=== PATIENT | female | born 1930 | race Caucasian/White ===

== ENCOUNTER 2018-02-08 12:31 | Inpatient (IN) | payer MEDICARE, OTHER ==
[~2018-02-08] VITALS: Ht 162.6 cm; Wt 72.7 kg
--- NOTE | ~2018-02-08 | EC ---
PATIENT:ELEAZAR CALLOWAY DATE OF SERVICE: 02/08/18 SEX: F MEDICAL RECORD: [id number] DATE OF : [birth year] LOCATION:D.M2 D.212 AGE OF PATIENT: 87 ADMISSION DATE: 02/08/18 REFERRING PHYSICIAN: INTERPRETING PHYSICIAN: KAIT BORREGO MD ECHOCARDIOGRAM REPORT ECHO CHARGES 4 ECHO COMPLETE Date: 02/08 CLINICAL DIAGNOSIS: ATRIAL FLUTTER ECHOCARDIOGRAPHIC MEASUREMENTS (adult normal given) AC root (d.<3.7cm) 2.3 cm LV Septum d (<1.2 cm> 1.5 cm Valve Excursion 1.6 cm LV Septum (systole) 1.6 cm Left Atria (s.<4.0cm> 3.9 cm LVPW d(<1.2cm) 0.9 cm RV (d.<2.3cm) 2.0 cm LVPW (sytole) 1.4 cm LV diastole(<5.6CM) 3.7 cm MV E-F(>70mm/sec) cm LV systole 2.7 cm LVOT Diameter 1.6 cm MV exc.(>10mm) cm Est.ejection fraction (50-75%) % DOPPLER: LVIT cm/sec A 56 cm/sec E 117 cm/sec LA cm/sec RVSP 19.8 mmHg LVOT 140 cm/sec AOP1/2T m/s Asc. Ao 167 cm/sec RVOT 62 cm/sec RA cm/sec PA cm/sec AV Gradient Peak 11.2 mmHg AV Mean 7.3 mmHg AV Area 1.7 cm MV Gradient Peak 5.4 mmHg MV Mean 1.4 mmHg MV Area cm COMMENTS: Electronic Organ Technician: Yayo MORGANDEE MURRAY Envelope Adjuster: 3 Dr. Reina TAPE# PACS Pericardial Effusion N DATE OF SERVICE: Adequate 2D echo, color flow, spectral Doppler and M-mode. Borderline LVH. LV internal dimension normal. Wall motion normal. EF is greater than or equal to 55%. Aortic valve tricuspid. No evidence of stenosis by Doppler interrogation. Left atrium is normal. Mitral valve show no prolapse. Trace MR. Right-sided chambers normal. Trace TR. TRANSINT:[id number] Voice Confirmation ID: [id number] DOCUMENT ID: [id number] ECHOCARDIOGRAM REPORT [id number] ELEAZAR CALLOWAY KAIT BORREGO MD at 1116 CC: [id number] DICTATION DATE: 02/08/18 1543 TRESTLEMAN: 02/08/18 1554 ADM IN [place] [id number] [place] [id number]
--- NOTE | ~2018-02-08 | PN ---
PATIENT:ELEAZAR CALLOWAY MEDICAL RECORD: [id number] LOCATION:D. D.212 ADMISSION DATE: 02/08/18 PROGRESS NOTE DATE OF SERVICE: 02/14/2018 SUBJECTIVE: An 87-year-old female who has had a history of chronic atrial flutter and has had increasing shortness of breath recently. Also has been having nasal drainage with thick secretions, which has sometimes been greenish in color. Per the daughter at the bedside the patient was doing better this morning. She has been coughing, had some chest tightness. No fever or chills at this time. PHYSICAL EXAMINATION: GENERAL: Physical exam reveals a sedentary female who is in no acute distress. Intermittent cough. VITAL SIGNS: Temperature 98.1, heart rate 104, respiratory rate 20, blood pressure 104/52, saturation 92%. HEENT: Unremarkable. There is mild nasal redness. There is no obstruction. NECK: Supple. Trachea is midline. There is no adenopathy. LUNGS: Chest exam shows mild wheezes with coughing. There is mild chest wall tenderness. There is no accessory muscle use. HEART: Exam shows no jugular venous distention, no murmur or gallops. ABDOMEN: Benign. EXTREMITIES: No clubbing, cyanosis or edema. LABORATORY DATA: White count 3.8, hemoglobin 8.4. Platelet count is 136,000. Chemistries remarkable for sodium of 131, potassium 3.6. Magnesium is 1.9. AST 107, ALT is 114, alkaline phosphatase is 248. Chest x-ray showed patchy airspace opacities seen in lung bases. ASSESSMENT: 1. Chronic atrial flutter with rapid ventricular response, improved with rate control. 2. Acute asthmatic bronchitis, probably secondary to postnasal drip with mucous plugging, the patient will need the mucolytics, bronchodilators. Also, continuous antibiotics. 3. Rhinitis. We will add saline nasal spray. PLAN: 1. Saline nasal spray. 2. Mucinex. 3. DVT prophylaxis. TRANSINT:[id number] Voice Confirmation ID: [id number] DOCUMENT ID: [id number] PROGRESS NOTE [id number] ELEAZAR CALLOWAY SOLITARIO AHUMADA at 1307 CC: [id number] DICTATION DATE: 02/14/182226 CHIEF ENGINEER RESEARCH: 02/15/18 0415 DIS IN 02/15/18 [facility] [address] [address]
--- NOTE | ~2018-02-08 | PN ---
PATIENT:ELEAZAR CALLOWAY MEDICAL RECORD: [id number] [facility] DATE: 02/08/18 PROGRESS NOTE DATE OF SERVICE: 02/15/2018 SUBJECTIVE: This is an 87-year-old female who was admitted for change in mental status as well as atrial flutter. The patient was also coughing non-productively. There is some shortness of breath. She was treated with antibiotics as well as bronchodilators and Mucinex. The patient's coughing is decreased this hospital relating that her breathing is improved. Family decided to transfer the patient to another hospital for a second opinion. PHYSICAL EXAMINATION: GENERAL: Reveals an elderly female resting comfortably in chair. VITAL SIGNS: Temperature 99.5, heart rate of 111, respiratory rate of 17, blood pressure 118/55, saturation 90%. SHEENT: Unremarkable. NECK: Supple. CHEST: Shows a mild crackle. Some coughing. NECK: Shows no jugular venous distention. No murmur or gallops. ABDOMEN: Benign, without any tenderness. EXTREMITIES: Shows no clubbing, cyanosis or edema. LABORATORY DATA: White count 3.5, hemoglobin 10, platelet count is 123,000. Chemistry is remarkable for potassium of 3.1, sodium of 128. BUN is 18, creatinine is 0.9. Arterial blood gas: pH 7.45, pCO2 of 32, pO2 of 64 on room air. ASSESSMENT: 1. Altered mental status probably secondary to bronchitis or hyponatremia, metabolic. 2. Atrial flutter, chronic. 3. Weakness. PLAN: 1. Continue bronchodilators. 2. The patient has signed consent for transfer. TRANSINT:[id number] Voice Confirmation ID: [id number] DOCUMENT ID: [id number] SOLITARIO AHUMADA at 1307 CC: [id number] DICTATION DATE: 02/15/182231 SOFTWARE DEVELOPER MID LEVEL: 02/16/18 0850 DIS IN 02/15/[address] [place] [id number]
--- NOTE | ~2018-02-08 | CN ---
PATIENT NAME:ELEAZAR CALLOWAY MEDICAL RECORD: [id number] : [birth year] LOCATION:D. D.2126 ADMIT DATE: 02/08/18 ACCOUNT: [id number] CONSULTING PHYSICIAN: KAIT BORREGO MD REFERRING PHYSICIAN: SANJEEV SANTOS DO DATE OF CONSULTATION: 02/08/2018 HISTORY: An 87-year-old female with history of dementia, presented initially to Dr. Santos's office with increasing dyspnea on exertion, fatigue, and tiredness; found to be in atrial fibrillation with RVR. Symptom exact onset is unknown. Historically, she has felt poorly since she had a cat scratch approximately a week ago. She sought care at urgent care clinic. No palpitations or flutters. PAST MEDICAL HISTORY: Dementia. ALLERGIES: None. MEDICATIONS: None chronically. SOCIAL HISTORY: Lives by herself. Nonsmoker and nondrinker. Excellent family support. REVIEW OF SYSTEMS: The patient reports easy bruising but reports no swollen glands. The patient reports no fever, no night sweats, no significant weight gain, no significant weight loss. No significant exercise tolerance. The patient reports no dry eyes, no irritation, no vision change. Patient reports no difficulty hearing and no ear pain. Patient reports no frequent nose bleeds or nose and sinus problems. Patient reports on arm pain on exertion. No shortness of breath while lying down. No history of heart murmur. Patient reports no cough, no wheezing or coughing up blood. Patient reports no abdominal pain, no vomiting. Normal appetite. No diarrhea and not vomiting blood. No nausea and no constipation. Patient reports no incontinence. No difficulty urinating. No hematuria. No increased frequency. Patient reports no muscle aches. No weakness, no arthralgias, no back pain. No swelling of the extremities. Patient reports no abnormal mole, no jaundice, no rashes. Reports no loss of consciousness. No weakness and no numbness. No seizures, dizziness, or headaches. The patient reports no depression, no sleep disturbance, feeling safe in a relationship and no alcohol abuse. Patient reports on fatigue. Reports no runny nose or sinus pressure. No itching, no hives, and no frequent sneezing. PHYSICAL EXAMINATION: GENERAL: Pleasant female, in no acute distress. VITAL SIGNS: Pulse 106 and blood pressure 97/64. HEENT: Normocephalic and atraumatic. NECK: No bruits noted. HEART: Irregular, mildly tachy. II/ systolic ejection murmur. LUNGS: Actually fairly good excursion. ABDOMEN: Soft and nontender. EXTREMITIES: Pulses are well preserved, 2+. There is no edema. IMPRESSION: AFib with RVR. At this point in time, we will start oral anticoagulants with Xarelto 20 mg p.o. daily. Risks and benefits were discussed with the patient and daughter. Additionally, Cardizem for rate control. Blood pressure somewhat low. Hopefully, she will tolerate this; if not, can consider CONSULT REPORT [id number] ELEAZAR CALLOWAY something such as digoxin. Further recommendations based on above. TRANSINT:[id number] Voice Confirmation ID: [id number] DOCUMENT ID: [id number] KAIT BORREGO MD at 1116 CC: [id number] DICTATION DATE: 02/08/18 1449 BUNCH TRIMMER MOLD: 02/08/18 1527 ADM IN [place] [id number] [place] [address]
[2018-02-08 14:03] VITALS: BP 97/53; BMI 26.1
[2018-02-08 14:11] LABS: BASOPHILS 0.8 % (0-2); EOSINOPHILS 0 % (0-7); HEMATOCRIT 32.9 % (36.0-48.0); HEMOGLOBIN 11.1 g/dL (12-16); IMMATURE GRANULOCYTES 0.6 % (0-5); LYMPHOCYTES 17.6 % (15-50); MCH 30.7 pg (26.0-34.0); MCHC 33.7 g/dL (31.0-37.0); MCV 90.9 fL (80.0-100.0); MEAN PLATELET VOLUME 11.1 fL (7.4-10.4); MONOCYTES 7.8 % (2-11); NEUTROPHILS 73.2 % (40-80); PLATELET COUNT 153 10x3/uL (130-400); RBC 3.62 10x6/uL (4.00-5.40); RDW 13.4 % (11.5-14.5); WBC 3.6 10x3/uL (4.8-10.8)
[2018-02-08 14:34] LABS: ALBUMIN 2.9 g/dL (3.4-5.0); ALKALINE PHOSPHATASE 155 U/L (46-116); ALT (SGPT) 83 U/L (10-68); BILIRUBIN - TOTAL 0.67 mg/dL (0.2-1.3); CALC OSMOLALITY 262 mosm/kg (275-300); CALCIUM 8.1 mg/dL (8.5-10.1); CARBON DIOXIDE 27.8 mmol/L (21.0-32.0); CHLORIDE - SERUM 98 mmol/L (98-107); CREATININE - SERUM 0.9 mg/dL (0.6-1.3); GLUCOSE 92 mg/dL (74-106); POTASSIUM - SERUM 4.1 mmol/L (3.5-5.1); PROTEIN - SERUM 6.4 g/dL (6.4-8.2); SODIUM 130 mmol/L (136-145); UREA NITROGEN 18 mg/dL (7-18); eGFR NON AFRICAN AMERICAN 63 mL/min (90-120)
[2018-02-08 14:43] LABS: CKMB 1.2 U/L (0.0-3.6); CREATINE KINASE 83 UL (21-215); MAGNESIUM - SERUM 2.2 mg/dL (1.8-2.4); THYROID STIMULATING HORMONE 1.58 uIU/mL (0.36-3.74)
[2018-02-08 14:44] LABS: TROPONIN-I < 0.017 ng/mL (0.000-0.060)
[2018-02-08 19:40] LABS: CKMB 0.9 U/L (0.0-3.6); CREATINE KINASE 77 UL (21-215); TROPONIN-I < 0.017 ng/mL (0.000-0.060)
[2018-02-08 20:00] VITALS: BP 86/41
[2018-02-09 02:07] LABS: CKMB 0.6 U/L (0.0-3.6); CREATINE KINASE 65 UL (21-215); TROPONIN-I < 0.017 ng/mL (0.000-0.060)
[2018-02-09 04:00] VITALS: BP 111/72
[2018-02-09 05:01] LABS: HEMATOCRIT 30.1 % (36.0-48.0); HEMOGLOBIN 10.1 g/dL (12-16); MCH 30.4 pg (26.0-34.0); MCHC 33.6 g/dL (31.0-37.0); MCV 90.7 fL (80.0-100.0); MEAN PLATELET VOLUME 11.1 fL (7.4-10.4); PLATELET COUNT 132 10x3/uL (130-400); RBC 3.32 10x6/uL (4.00-5.40); RDW 13.7 % (11.5-14.5); WBC 2.8 10x3/uL (4.8-10.8)
[2018-02-09 05:11] LABS: ALBUMIN 2.5 g/dL (3.4-5.0); BILIRUBIN - TOTAL 0.9 mg/dL (0.2-1.3); CALCIUM 7.8 mg/dL (8.5-10.1); CARBON DIOXIDE 26.8 mmol/L (21.0-32.0); CREATININE - SERUM 1.1 mg/dL (0.6-1.3); POTASSIUM - SERUM 3.8 mmol/L (3.5-5.1); PROTEIN - SERUM 6.2 g/dL (6.4-8.2)
[2018-02-09 05:35] LABS: APPEARANCE CLEAR (CLEAR); BILIRUBIN NEGATIVE (NEGATIVE); COLOR DK YELLOW (YELLOW); GLUCOSE NEGATIVE (NEGATIVE); KETONE NEGATIVE (NEGATIVE); NITRITE NEGATIVE (NEGATIVE); PROTEIN TRACE mg/dL (NEGATIVE); SPECIFIC GRAVITY 1.015 (1.005-1.020); UROBILINOGEN NORMAL (NORMAL)
[2018-02-09 05:36] LABS: BACTERIA FEW /hpf (NONE SEEN); EPITHELIAL CELLS 0-5 /hpf (0-5); HYALINE CAST 0-5 /lpf (NONE SEEN); RED CELLS - URINE 0-5 /hpf (0-5); WHITE CELLS - URINE 0-5 /hpf (0-5)
[2018-02-09 07:25] LABS: LYMPHOCYTES 17 % (15-50); MONOCYTES 8 % (2-11); NEUTROPHILS 61 % (40-80); PLATELET ESTIMATE NORMAL; ROULEAUX OCC
[2018-02-09 07:57] VITALS: BP 82/43
[2018-02-09 15:06] VITALS: Ht 162.6 cm; Wt 72.7 kg
[2018-02-09 20:06] VITALS: BP 98/56
[2018-02-10] VITALS: BP 110/58
[2018-02-10 04:19] LABS: BASOPHILS 0.8 % (0-2); EOSINOPHILS 0 % (0-7); HEMATOCRIT 28.9 % (36.0-48.0); HEMOGLOBIN 9.7 g/dL (12-16); IMMATURE GRANULOCYTES 0.3 % (0-5); LYMPHOCYTES 12.9 % (15-50); MCH 29.8 pg (26.0-34.0); MCHC 33.6 g/dL (31.0-37.0); MEAN PLATELET VOLUME 10.7 fL (7.4-10.4); MONOCYTES 6.1 % (2-11); NEUTROPHILS 79.9 % (40-80); PLATELET COUNT 129 10x3/uL (130-400); RBC 3.26 10x6/uL (4.00-5.40); RDW 13.5 % (11.5-14.5)
[2018-02-10 04:26] LABS: MCV 88.7 fL (80.0-100.0); WBC 3.9 10x3/uL (4.8-10.8)
[2018-02-10 04:36] LABS: ALBUMIN 2.3 g/dL (3.4-5.0); ANION GAP 11.5 mmol/L (8-16); BILIRUBIN - TOTAL 1.59 mg/dL (0.2-1.3); CALCIUM 7.7 mg/dL (8.5-10.1); CARBON DIOXIDE 22.2 mmol/L (21.0-32.0); CREATININE - SERUM 0.9 mg/dL (0.6-1.3); POTASSIUM - SERUM 3.7 mmol/L (3.5-5.1); PROTEIN - SERUM 6.1 g/dL (6.4-8.2)
[2018-02-10 07:43] VITALS: BP 91/58
[2018-02-10 11:40] VITALS: BP 96/62
[2018-02-10 15:53] VITALS: BP 90/54
[2018-02-10 20:33] VITALS: BP 83/49
[2018-02-11] VITALS: BP 103/52
[2018-02-11 04:21] LABS: BASOPHILS 0.7 % (0-2); EOSINOPHILS 0 % (0-7); HEMATOCRIT 29.8 % (36.0-48.0); HEMOGLOBIN 10.1 g/dL (12-16); IMMATURE GRANULOCYTES 0.2 % (0-5); LYMPHOCYTES 10.1 % (15-50); MCH 30.1 pg (26.0-34.0); MCHC 33.9 g/dL (31.0-37.0); MEAN PLATELET VOLUME 11.4 fL (7.4-10.4); MONOCYTES 8.7 % (2-11); NEUTROPHILS 80.3 % (40-80); PLATELET COUNT 117 10x3/uL (130-400); RBC 3.35 10x6/uL (4.00-5.40); RDW 13.9 % (11.5-14.5); WBC 4.2 10x3/uL (4.8-10.8)
[2018-02-11 04:52] LABS: ALBUMIN 2.3 g/dL (3.4-5.0); ANION GAP 14.2 mmol/L (8-16); BILIRUBIN - TOTAL 2.02 mg/dL (0.2-1.3); CARBON DIOXIDE 20.9 mmol/L (21.0-32.0); CREATININE - SERUM 1.1 mg/dL (0.6-1.3); POTASSIUM - SERUM 4.1 mmol/L (3.5-5.1); PROTEIN - SERUM 6.1 g/dL (6.4-8.2)
[2018-02-11 05:36] VITALS: BP 90/47
[2018-02-11 07:50] VITALS: BP 101/44
[2018-02-11 11:12] VITALS: BP 98/45
[2018-02-11 16:09] VITALS: BP 102/49
[2018-02-11 20:02] VITALS: BP 74/34
[2018-02-12 00:24] VITALS: BP 93/51
[2018-02-12 05:36] LABS: BASOPHILS 0.5 % (0-2); EOSINOPHILS 0.3 % (0-7); HEMATOCRIT 28.3 % (36.0-48.0); HEMOGLOBIN 9.7 g/dL (12-16); IMMATURE GRANULOCYTES 0.5 % (0-5); LYMPHOCYTES 12.6 % (15-50); MCHC 34.3 g/dL (31.0-37.0); MCV 87.6 fL (80.0-100.0); MEAN PLATELET VOLUME 11.1 fL (7.4-10.4); MONOCYTES 4.7 % (2-11); NEUTROPHILS 81.4 % (40-80); PLATELET COUNT 113 10x3/uL (130-400); RBC 3.23 10x6/uL (4.00-5.40); WBC 3.8 10x3/uL (4.8-10.8)
[2018-02-12 06:13] VITALS: BP 139/114
[2018-02-12 06:16] LABS: ALBUMIN 2.1 g/dL (3.4-5.0); ANION GAP 10.6 mmol/L (8-16); BILIRUBIN - TOTAL 2.29 mg/dL (0.2-1.3); CALCIUM 8.4 mg/dL (8.5-10.1); CARBON DIOXIDE 24.4 mmol/L (21.0-32.0); CREATININE - SERUM 1.1 mg/dL (0.6-1.3)
[2018-02-12 07:24] LABS: HEP B CORE AB TOTAL Negative (Negative); HEPATITIS C ANTIBODY <0.1 (0.0-0.9)
[2018-02-12 08:09] VITALS: BP 85/47
[2018-02-12 12:05] VITALS: BP 86/49
[2018-02-12 15:01] VITALS: BP 98/57
[2018-02-12 20:30] VITALS: BP 104/54
[2018-02-13 04:30] VITALS: BP 16/56
[2018-02-13 05:51] LABS: BASOPHILS 0.8 % (0-2); EOSINOPHILS 0.3 % (0-7); HEMOGLOBIN 9.7 g/dL (12-16); IMMATURE GRANULOCYTES 0.8 % (0-5); LYMPHOCYTES 9.2 % (15-50); MCH 29.3 pg (26.0-34.0); MCHC 33.4 g/dL (31.0-37.0); MCV 87.6 fL (80.0-100.0); MEAN PLATELET VOLUME 11.8 fL (7.4-10.4); MONOCYTES 4.7 % (2-11); NEUTROPHILS 84.2 % (40-80); RBC 3.31 10x6/uL (4.00-5.40); RDW 14.1 % (11.5-14.5); WBC 3.8 10x3/uL (4.8-10.8)
[2018-02-13 05:54] LABS: PLATELET COUNT 147 10x3/uL (130-400)
[2018-02-13 06:16] LABS: ALBUMIN 1.9 g/dL (3.4-5.0); ANION GAP 10.2 mmol/L (8-16); BILIRUBIN - TOTAL 2.02 mg/dL (0.2-1.3); CALCIUM 7.8 mg/dL (8.5-10.1); CARBON DIOXIDE 25.8 mmol/L (21.0-32.0); PROTEIN - SERUM 5.5 g/dL (6.4-8.2)
[2018-02-13 06:18] LABS: CREATININE - SERUM 0.8 mg/dL (0.6-1.3)
[2018-02-13 07:55] VITALS: BP 98/48
[2018-02-13 11:33] VITALS: BP 105/63
[2018-02-13 15:30] VITALS: BP 106/72
[2018-02-13 21:54] VITALS: BP 106/81
[2018-02-14 02:13] VITALS: BP 118/76
[2018-02-14 05:26] VITALS: BP 109/55
[2018-02-14 05:38] LABS: BASOPHILS 0.5 % (0-2); EOSINOPHILS 0.5 % (0-7); HEMATOCRIT 27.6 % (36.0-48.0); HEMOGLOBIN 9.4 g/dL (12-16); IMMATURE GRANULOCYTES 0.8 % (0-5); LYMPHOCYTES 7.4 % (15-50); MCH 29.6 pg (26.0-34.0); MCHC 34.1 g/dL (31.0-37.0); MCV 86.8 fL (80.0-100.0); MEAN PLATELET VOLUME 11.7 fL (7.4-10.4); MONOCYTES 5.8 % (2-11); PLATELET COUNT 136 10x3/uL (130-400); RBC 3.18 10x6/uL (4.00-5.40); WBC 3.8 10x3/uL (4.8-10.8)
[2018-02-14 06:10] LABS: ALBUMIN 1.8 g/dL (3.4-5.0); ALKALINE PHOSPHATASE 248 U/L (46-116); ALT (SGPT) 114 U/L (10-68); BILIRUBIN - TOTAL 1.92 mg/dL (0.2-1.3); CALC OSMOLALITY 264 mosm/kg (275-300); CARBON DIOXIDE 25.1 mmol/L (21.0-32.0); CHLORIDE - SERUM 100 mmol/L (98-107); CREATININE - SERUM 0.7 mg/dL (0.6-1.3); GLUCOSE 95 mg/dL (74-106); MAGNESIUM - SERUM 1.9 mg/dL (1.8-2.4); PHOSPHOROUS 2.7 mg/dL (2.5-4.9); POTASSIUM - SERUM 3.6 mmol/L (3.5-5.1); PRO BNP 8605 pg/mL (0-450); PROTEIN - SERUM 5.5 g/dL (6.4-8.2); SODIUM 131 mmol/L (136-145); UREA NITROGEN 17 mg/dL (7-18); eGFR NON AFRICAN AMERICAN 84 mL/min (90-120)
[2018-02-14 10:00] VITALS: BP 115/71
[2018-02-14 15:25] LABS: EHRLICHIA CHAFF IGG Negative (Neg:<1:64); EHRLICHIA CHAFF IGM Negative (Neg:<1:20); HGE IGG TITER Negative (Neg:<1:64); HGE IGM TITER Negative (Neg:<1:20)
[2018-02-14 20:05] VITALS: BP 104/52
[2018-02-15 03:11] LABS: RMSF IGM 0.23 index (0.00-0.89)
[2018-02-15 05:17] VITALS: BP 141/63
[2018-02-15 13:18] LABS: ANA REFLEX - ANTICHROMATIN ABS 0.4 AI (0.0-0.9); ANA REFLEX - CENTROMERE B ABS <0.2 AI (0.0-0.9); ANA REFLEX - DBL STRANDED DNA 49 IU/mL (0-9); ANA REFLEX - DIRECT Positive (Negative); ANA REFLEX - JO-1 AB <0.2 AI (0.0-0.9); ANA REFLEX - RNP ANTIBODIES <0.2 AI (0.0-0.9); ANA REFLEX - SCL-70 <0.2 AI (0.0-0.9); ANA REFLEX - SJOGRENS AB SSA 0.2 AI (0.0-0.9); ANA REFLEX - SJOGRENS AB SSB <0.2 AI (0.0-0.9); ANA REFLEX - SMITH AB <0.2 AI (0.0-0.9)
[2018-02-15 16:24] LABS: BASOPHILS 0.3 % (0-2); EOSINOPHILS 0.9 % (0-7); HEMATOCRIT 29.7 % (36.0-48.0); IMMATURE GRANULOCYTES 0.9 % (0-5); LYMPHOCYTES 7.8 % (15-50); MCH 29.5 pg (26.0-34.0); MCHC 33.7 g/dL (31.0-37.0); MCV 87.6 fL (80.0-100.0); MEAN PLATELET VOLUME 11.6 fL (7.4-10.4); MONOCYTES 7.2 % (2-11); NEUTROPHILS 82.9 % (40-80); PLATELET COUNT 123 10x3/uL (130-400); RBC 3.39 10x6/uL (4.00-5.40); RDW 14.5 % (11.5-14.5); WBC 3.5 10x3/uL (4.8-10.8)
[2018-02-15 17:15] LABS: ALBUMIN 1.9 g/dL (3.4-5.0); BILIRUBIN - TOTAL 1.71 mg/dL (0.2-1.3); CALCIUM 7.8 mg/dL (8.5-10.1); CARBON DIOXIDE 28.1 mmol/L (21.0-32.0); POTASSIUM - SERUM 3.1 mmol/L (3.5-5.1); PROTEIN - SERUM 5.5 g/dL (6.4-8.2)
[2018-02-15 17:16] LABS: CREATININE - SERUM 0.9 mg/dL (0.6-1.3)
[2018-02-15 18:50] VITALS: BP 106/56
[2018-02-15 20:31] VITALS: BP 113/55
[2018-02-16 22:14] LABS: MYCOPLASMA PNEUMO IGG 587 U/mL (0-99)
[2018-02-17 11:23] LABS: F. TULARENSIS - IGG Negative (()); F. TULARENSIS - IGM Negative (())
== END 2018-02-15 23:17 | disposition short-term general hospital (02) | DRG 193 ==
LOC: D.OPS 12:31 → D.M2 12:32
PROVIDERS: Family Medicine; Internal Medicine Pulmonary Disease; Student in an Organized Health Care Education/Training Program
DX: J18.9 Pneumonia, unspecified organism (principal); I50.31 Acute diastolic (congestive) heart failure; E87.1 Hypo-osmolality and hyponatremia; F05 Delirium due to known physiological condition; I48.92 Unspecified atrial flutter; I48.91 Unspecified atrial fibrillation; R53.1 Weakness; R50.9 Fever, unspecified; F03.90 Unspecified dementia, unspecified severity, without behavioral disturbance, psychotic disturbance, mood disturbance, and anxiety; D72.819 Decreased white blood cell count, unspecified; D69.6 Thrombocytopenia, unspecified; R74.8 Abnormal levels of other serum enzymes; J20.9 Acute bronchitis, unspecified